=== PATIENT | female | born 1970 | race Caucasian/White ===

== ENCOUNTER → 2021-08-19 | Outpatient (CLI) | payer OTHER ==
[~2021-08-19] MED LIST: CYCLOBENZAPRINE10 MG PO; HYDROCODON-ACE1 EAC4 PO; IBU800 MG PO; IBUPROFEN600 MG PO; PATANOL OP SOLN5 ML EYEBOTH; PROVENTIL HFA6.7 GM INH
[2021-08-19 09:57] LABS: HEMOGLOBIN 14.4 gm/dl (12.3-15.3); RED BLOOD COUNT 4.91 M/UL (4.00-5.10); WHITE BLOOD COUNT 10.4 K/UL (4.5-11.0)
[2021-08-19 10:09] LABS: BUN/CREATININE RATIO 9 (0-10)
== END ==
LOC: OPSV2 08:30
PROVIDERS: Orthopaedic Surgery
DX: Z01.818 Encounter for other preprocedural examination (principal)
CPT/HCPCS: 36415; 71046; 80048; 85027; 86850; 86900; 86901; 93005

== ENCOUNTER → 2021-08-20 | Day surgery (SDC) | payer OTHER, MEDICAID | END | disposition home or self-care (01) | LOC: OR 06:00 | DX: S32.040A Wedge compression fracture of fourth lumbar vertebra, initial encounter for closed fracture (principal); J45.909 Unspecified asthma, uncomplicated; X50.9XXA Other and unspecified overexertion or strenuous movements or postures, initial encounter; Y99.0 Civilian activity done for income or pay; Z20.822 Contact with and (suspected) exposure to COVID-19; Z90.49 Acquired absence of other specified parts of digestive tract; Z88.1 Allergy status to other antibiotic agents; Z91.040 Latex allergy status | CPT/HCPCS: C1713; J0690; J1100; J1170; J1800; J1885; J2001; J2250; J2405; J2550; J2704; J2710; J3010; J7120; Q9967 ==

== ENCOUNTER 2021-08-24 10:21 | Emergency (ER) | payer OTHER ==
[~2021-08-24 10:21] MED LIST changes: -CYCLOBENZAPRINE10 MG PO; -HYDROCODON-ACE1 EAC4 PO; -IBUPROFEN600 MG PO
[2021-08-24 11:57] LABS: HEMOGLOBIN 13.6 gm/dl (12.3-15.3); RED BLOOD COUNT 4.81 M/UL (4.00-5.10); WHITE BLOOD COUNT 11.3 K/UL (4.5-11.0)
[2021-08-24 12:18] LABS: BUN/CREATININE RATIO 14 (0-10)
[2021-08-24] MEDS ORDERED: CYCLOBENZAPRINE10 MG PO (14:04)
[2021-08-24] MEDS ORDERED: IBUPROFEN600 MG PO (14:04)
[2021-08-24] MEDS ORDERED: HYDROCODON-ACE1 EAC4 PO (14:08)
== END 2021-08-24 14:30 | disposition home or self-care (01) ==
LOC: ER1 10:21
PROVIDERS: Physician Assistant
DX: G89.18 Other acute postprocedural pain (principal); M51.36 Other intervertebral disc degeneration, lumbar region; M54.41 Lumbago with sciatica, right side; M54.42 Lumbago with sciatica, left side; Z91.040 Latex allergy status; Z88.1 Allergy status to other antibiotic agents
CPT/HCPCS: 72129; 72132; 80048; 83605; 85025; 85652; 86140; 87040; 96374; 96375; 99284; J1170; J1885; J2405; J3360; Q9967

== ENCOUNTER 2021-09-20 11:51 | Emergency (ER) | payer OTHER ==
[~2021-09-20 11:51] MED LIST changes: +CYCLOBENZAPRINE10 MG PO; +HYDROCODON-ACE1 EAC4 PO; +IBUPROFEN600 MG PO
[2021-09-20 12:33] LABS: HEMOGLOBIN 14.5 gm/dl (12.3-15.3); RED BLOOD COUNT 4.9 M/UL (4.00-5.10); WHITE BLOOD COUNT 12.4 K/UL (4.5-11.0)
[2021-09-20 12:58] LABS: BUN/CREATININE RATIO 11 (0-10)
[2021-09-20] MEDS ORDERED: HYDROCODON-ACE1 EAC2 PO (14:35)
== END 2021-09-20 14:53 | disposition home or self-care (01) ==
LOC: ER1 11:51
PROVIDERS: Nurse Practitioner
DX: M54.50 Low back pain, unspecified (principal); F17.210 Nicotine dependence, cigarettes, uncomplicated; Z88.2 Allergy status to sulfonamides; Z88.1 Allergy status to other antibiotic agents; Z91.040 Latex allergy status
CPT/HCPCS: 72132; 80053; 85025; 85652; 86140; 96374; 96375; 99284; J1170; J2270; J2405; Q9967